=== PATIENT | female | born 1980 | race Caucasian/White ===

== ENCOUNTER 2020-08-23 16:14 | Emergency (ER) | payer OTHER ==
[2020-08-23 17:23] LABS: HEMOGLOBIN 14.2 gm/dl (12.3-15.3); RED BLOOD COUNT 4.84 M/UL (4.00-5.10); WHITE BLOOD COUNT 13.6 K/UL (4.5-11.0)
[2020-08-23 17:44] LABS: BUN/CREATININE RATIO 18 (0-10)
[2020-08-23] MEDS ORDERED: ENDOCET 5-3251 EACH PO (18:21)
[2020-08-23] MEDS ORDERED: ZOFRAN ODT 4 MG4 MG SL (18:21)
== END 2020-08-23 18:36 | disposition home or self-care (01) ==
LOC: ER1 16:14
PROVIDERS: Emergency Medicine
DX: R10.2 Pelvic and perineal pain (principal); K80.81 Other cholelithiasis with obstruction
CPT/HCPCS: 80053; 81001; 83690; 85025; 99284

== ENCOUNTER 2020-12-17 13:42 | Emergency (ER) | payer OTHER ==
[~2020-12-17 13:42] MED LIST: ENDOCET 5-3251 EACH PO; ZOFRAN ODT 4 MG4 MG SL
[2020-12-17 16:13] LABS: RED BLOOD COUNT 4.5 M/UL (4.00-5.10); WHITE BLOOD COUNT 12.3 K/UL (4.5-11.0)
[2020-12-17 16:34] LABS: BUN/CREATININE RATIO 19 (0-10)
[2020-12-17] MEDS ORDERED: BENTYL 20MG TAB20 MG PO (19:25)
[2020-12-17] MEDS ORDERED: PHENERGAN 25 MG25 M1 PO (19:25)
[2020-12-17] MEDS ORDERED: PROTONIX40 MG PO (19:31)
== END 2020-12-17 20:25 | disposition home or self-care (01) ==
LOC: ER1 13:42
PROVIDERS: Family Medicine
DX: N39.0 Urinary tract infection, site not specified (principal); G43.909 Migraine, unspecified, not intractable, without status migrainosus; K21.9 Gastro-esophageal reflux disease without esophagitis; F17.210 Nicotine dependence, cigarettes, uncomplicated
CPT/HCPCS: 80053; 81001; 83605; 83690; 84703; 85025; 86140; 96372; 96374; 96375; 99284; C9113; J0500; J1200; J1885; J2405; J2765; J7030